=== PATIENT | male | born 1995 | race African-American/Black ===

== ENCOUNTER 2017-06-24 20:36 | Emergency (ER) | payer BC ==
--- NOTE | 2017-06-24 21:23 | RAD ---
RIGHT KNEE FOUR VIEWS: 06/24/17 HISTORY: 22-year-old male with right knee pain for two months. IMPRESSION: No fracture, dislocation, or other significant acute osseous abnormality. POS: [facility]
== END 2017-06-24 21:55 | disposition home or self-care (01) ==
LOC: ERS 20:36
DX: S83.91XA Sprain of unspecified site of right knee, initial encounter (principal); W22.03XA Walked into furniture, initial encounter

== ENCOUNTER 2019-02-11 14:07 | Emergency (ER) | payer BC ==
[2019-02-11] MEDS ORDERED: Ibuprofen 200 MG TAB ONE (14:21)
[2019-02-11] MEDS ORDERED: Adacel (T-DAP) 0.5 ML SYRINGE ONE (14:21)
== END 2019-02-11 14:43 | disposition home or self-care (01) ==
LOC: SCSER 14:07
DX: S61.213A Laceration without foreign body of left middle finger without damage to nail, initial encounter (principal); W26.8XXA Contact with other sharp object(s), not elsewhere classified, initial encounter
CPT/HCPCS: 90471; 90715

== ENCOUNTER 2020-05-31 02:01 | Emergency (ER) | payer BC | END 2020-05-31 02:12 | disposition left against medical advice (07) | LOC: ERS 02:01 | DX: Z53.21 Procedure and treatment not carried out due to patient leaving prior to being seen by health care provider (principal) ==